=== PATIENT | female | born 1955 | race Caucasian/White ===

== ENCOUNTER → 2016-07-29 | Outpatient (CLI) | payer OTHER ==
[~2016-07-29] MED LIST: ARIP2TAB PO; ASPI-496 PO; CLON0.5T20 PO; HYDR50CA2 PO; OXCA150T PO; OXCA300T PO; SERT100T5 PO; TRAZ150T68 PO; TRAZ50TA18 PO
== END | disposition home or self-care (01) ==
LOC: WOUND 12:18
PROVIDERS: ATTEND Internal Medicine
DX: I83.812 Varicose veins of left lower extremity with pain (principal); L97.811 Non-pressure chronic ulcer of other part of right lower leg limited to breakdown of skin; I10 Essential (primary) hypertension; F31.9 Bipolar disorder, unspecified; E78.5 Hyperlipidemia, unspecified; M86.8X7 Other osteomyelitis, ankle and foot; Z89.432 Acquired absence of left foot; Z87.891 Personal history of nicotine dependence; Z72.89 Other problems related to lifestyle
CPT/HCPCS: 36475

== ENCOUNTER → 2016-08-02 | Outpatient (CLI) | payer OTHER | END | disposition home or self-care (01) | LOC: CVU 09:16 | PROVIDERS: ATTEND Internal Medicine Cardiovascular Disease | DX: Z02.9 Encounter for administrative examinations, unspecified (principal) ==

== ENCOUNTER 2018-05-07 20:35 | Emergency (ER) | payer MEDICARE ==
[~2018-05-07] VITALS: Ht 160 cm; Wt 59.1 kg
[~2018-05-07 20:35] MED LIST changes: -ARIP2TAB PO; +ARIP2TAB2 PO; -OXCA150T PO; +OXCA150T18 PO; -OXCA300T PO; +OXCA300T19 PO; +SERT100T32 PO; -SERT100T5 PO; +TRAZ150T62 PO; -TRAZ150T68 PO; -TRAZ50TA18 PO; +TRAZ50TA66 PO
--- NOTE | 2018-05-07 20:51 | NUR ---
REQUESTED BED VS. ROOM 20 FROM [facility] [employer]. PT. BECAME BECAME VERY PALE AND WAS HAVING TROUBLE KEEPING EYES OPEN/ANSWERING QUESTIONS AND STATED "I DON'T FEEL GOOD NOW". PT. MORE AWAKE/ALERT NOW AND ABLE TO STAND TO TRANSFER TO W/C TO MOVE ROOM.
[2018-05-07] MEDS ORDERED: PHENYLEPHRINE NASAL 1%, 15ML SPRAY NAS STA (20:54)
[2018-05-07] MEDS ORDERED: SODIUM CHLORIDE 0.9% 1,000ML IVBOLUS ONE (21:00)
[2018-05-07] MEDS ORDERED: SODIUM CHLORIDE FLUSH 10ML SYR IVF ONE (21:00)
--- NOTE | 2018-05-07 21:06 | NUR ---
PT. PLACED ON CONTINUOUS PULSE OX AND B/P MONITORS AND IN GURNEY RESTING COMFORTABLY. PT. DOES REPORT TAKING HER NIGHT MEDS ALREADY INCLUDING HER SLEEPING PILL AND STATES THIS CONTRIBUTES TO THE DROWSINESS. PT. IS A&O X 4 BUT DROWSY. DENIES "FEELING BAD" AT THIS TIME. PLACED ON OXYMASK O2 SAT WAS 88% AND NC NOT AN OPTION WITH NOSECLAMP IN PLACE. IV HAS BEEN ESTABLISHED; IVF INFSUING AND LABS HAVE BEEN DRAWN. CALL LIGHT IN REACH. ALL SAFETY MEASURES OBSERVED.
--- NOTE | 2018-05-07 21:12 | NUR ---
PT. NO LONGER PALE/DIAPHORETIC. SKIN PWD.
[2018-05-07 21:19] LABS: BASOPHILS # (AUTO) 0.08 x10^3/uL (0-0.1); BASOPHILS % (AUTO) 1 % (0-1); EOSINOPHILS # (AUTO) 0.06 x10^3/uL (0-0.4); EOSINOPHILS % (AUTO) 1 % (1-7); LYMPHOCYTES # (AUTO) 1.88 x10^3/uL (1-3.4); LYMPHOCYTES % (AUTO) 15 % (22-44); MD NO; MEAN CORPUSCULAR HEMOGLOBIN 32.7 pg (27.0-34.8); MEAN CORPUSCULAR HGB CONC 34.1 g/dL (32.4-35.8); MEAN PLATELET VOLUME 7.1 fL (7.4-10.4); MONOCYTES # (AUTO) 0.75 x10^3/uL (0.2-0.8); MONOCYTES % (AUTO) 6 % (2-9); NEUTROPHILS # (AUTO) 9.84 x10^3/uL (1.8-6.8); NEUTROPHILS % (AUTO) 78 % (42-75); PLATELET COUNT 302 x10^3/uL (130-400); RED BLOOD COUNT 4.67 x10^6/uL (3.82-5.3)
[2018-05-07 21:30] LABS: ALANINE AMINOTRANSFERASE 40 U/L (12-78); ALBUMIN 4.3 g/dL (3.4-5.0); ANION GAP 11 mmol/L (5-15); CALCIUM 8.6 mg/dL (8.5-10.1); CHLORIDE 103 mmol/L (98-107); CREATININE 0.72 mg/dL (0.55-1.02)
[2018-05-07 21:32] LABS: ALKALINE PHOSPHATASE 92 U/L (45-117); BILIRUBIN,TOTAL 0.3 mg/dL (0.2-1.0); TOTAL PROTEIN 7.5 g/dL (6.4-8.2)
--- NOTE | 2018-05-07 21:44 | NUR ---
THE PA HAD REMOVED NOSECLAMP AND REPORTED TO THIS RN THAT NOSE WAS NOT BLEEDING ANYMORE; NASAL SPRAY NOT ADMIN AT THAT TIME BUT PA HAS MED STILL IN CASE IT'S NEEDED. PT. IS RESTING ON GURNEY WITH NADN. ABOUT 400ML OF NS HAS INFUSED. PT. USING CELL PHONE AT THIS TIME. ALL SAFETY MEASURES OBSERVED.
[2018-05-07 21:48] LABS: INTERNATIONAL NORMALIZED RATIO 1.08 (0.93-1.1); PROTHROMBIN TIME 11.4 Seconds (9.6-11.5)
[2018-05-07 22:12] VITALS: BP 102/58
== END 2018-05-07 22:26 | disposition home or self-care (01) ==
LOC: ED 21:43
DX: R04.0 Epistaxis (principal); F31.9 Bipolar disorder, unspecified; I95.9 Hypotension, unspecified; R55 Syncope and collapse
CPT/HCPCS: 36415; 80053; 85025; 85610; 85730; 86850; 86870; 86880; 86900; 96360; 99283; J7030

== ENCOUNTER → 2018-05-14 | Outpatient (CLI) | payer MEDICARE | END | disposition home or self-care (01) | LOC: CFH 10:30 | PROVIDERS: ATTEND Family Medicine | DX: M51.16 Intervertebral disc disorders with radiculopathy, lumbar region (principal); M47.26 Other spondylosis with radiculopathy, lumbar region; M48.061 Spinal stenosis, lumbar region without neurogenic claudication | CPT/HCPCS: 72148 ==

== ENCOUNTER 2019-05-30 06:36 | Day surgery (SDC) | payer MEDICARE ==
[2019-05-27 14:34] LABS: ALANINE AMINOTRANSFERASE 21 U/L (12-78); ALBUMIN 3.8 g/dL (3.4-5.0); ANION GAP 6 mmol/L (5-15); CALCIUM 8.8 mg/dL (8.5-10.1); CHLORIDE 105 mmol/L (98-107)
[2019-05-27 14:37] LABS: ALKALINE PHOSPHATASE 69 U/L (45-117); BILIRUBIN,TOTAL 0.5 mg/dL (0.2-1.0); CREATININE 0.92 mg/dL (0.55-1.02); TOTAL PROTEIN 6.9 g/dL (6.4-8.2)
[~2019-05-30] VITALS: Ht 160 cm; Wt 59.0 kg
[~2019-05-30 06:36] MED LIST changes: +ARIP5TAB13 PO; +CALC625T23 PO; +CHOL10003 PO; +CYCL-259 PO; +DULO60CA7 PO; +GABA300C10 PO; +HYDR50TA99 PO; +LINA290C PO; +LOSA100T14 PO; +MELA1TAB15 PO; +MULT-658 PO; +NAPR-685 PO; +RALO60TA PO; +SUVO20TA PO; +TIZA4CAP PO; +TRAZ-175 PO
[2019-05-30] MEDS ORDERED: LIDOCAINE 1%, 20ML ONE (06:41)
[2019-05-30] MEDS ORDERED: BUPIVACAINE/PF 0.5% ONE (06:41)
[2019-05-30] MEDS ORDERED: LACTATED RINGERS 1,000 ML IV SCH (07:26)
[2019-05-30 07:42] VITALS: BP 141/84
[2019-05-30] MEDS ORDERED: HYDROmorphone 2 MG/ML, 1ML IVPush PRN (08:30)
[2019-05-30] MEDS ORDERED: FENTANYL PF 100 MCG/2ML IV PRN (08:30)
[2019-05-30] MEDS ORDERED: OXYcodone 5 MG/5 ML ORAL.SOL UDC PO PRN (08:30)
[2019-05-30] MEDS ORDERED: MORPHINE SULFATE 4 MG/ML, 1ML IVPush PRN (08:30)
[2019-05-30] MEDS ORDERED: ONDANSETRON 2MG/ML, 2ML IV PRN (08:30)
[2019-05-30] MEDS ORDERED: ACETAMINOPHEN 325 MG TABLET PO PRN (08:30)
[2019-05-30] MEDS ORDERED: PROPOFOL 10 MG/ML, 20ML ONE ×2 (08:37)
[2019-05-30] MEDS ORDERED: CEFAZOLIN 1,000 MG ONE ×2 (08:37)
[2019-05-30] MEDS ORDERED: FENTANYL PF 100 MCG/2ML ONE ×2 (08:38→09:28)
[2019-05-30] MEDS ORDERED: LIDOCAINE 1%, 20ML INFIL ONE (08:40)
[2019-05-30] MEDS ORDERED: BUPIVACAINE/PF 0.5% INFIL ONE (08:40)
[2019-05-30] MEDS ORDERED: ACETAMINOPHEN 650 MG/20.3 ML UDC ONE (09:27)
[2019-05-30] MEDS ORDERED: OXYcodone 5 MG/5 ML ORAL.SOL UDC ONE (09:28)
[2019-05-30] MEDS ORDERED: ACETAMINOPHEN 325 MG TABLET ONE (09:28)
== END 2019-05-30 11:55 | disposition home or self-care (01) ==
LOC: OUT 06:36
PROVIDERS: ATTEND Orthopaedic Surgery
DX: M72.0 Palmar fascial fibromatosis [Dupuytren] (principal); I10 Essential (primary) hypertension; Z79.899 Other long term (current) drug therapy
CPT/HCPCS: 26123; 36415; 80053; 88304; 93005; J0690; J2704; J3010; J7120